=== PATIENT | male | born 1935 | race Caucasian/White ===

== ENCOUNTER 2016-03-22 18:42 | Emergency (ER) | payer OTHER ==
[2016-03-22 18:52] VITALS: BP 167/98
[2016-03-22 20:06] LABS: Urine Bilirubin Negative (NEGATIVE); Urine Blood Negative /ul (NEGATIVE); Urine Ketone Negative (NEGATIVE); Urine Nitrite Negative (NEGATIVE); Urine Protein Negative (NEGATIVE); Urine Urobilinogen Normal (NORMAL)
--- NOTE | 2016-03-22 20:11 | ERNOTE ---
ER Male HPI Date of Service: 03/22/16 Stated Complaint: URINARY PAIN ER Male: dysuria Time Seen by Provider: 03/22/16 20:06 Source: patient Exam Limitations: no limitations Immunizations: IMMUNIZATION HX Immunizations Up to Date Yes History of Influenza Vaccine Yes Hx Pneumococcal Vaccination No Allergies/Adverse Reactions: Allergies No Known Allergies Allergy (Unverified 12/16/14 17:32) Home Medications: HOME MEDICATIONS Doxazosin Mesylate [Cardura] 2 mg PO DAILY 12/16/14 [Last Taken Unknown] Doxycycline Hyclate [Vibratab] 100 mg PO BID #20 tab 12/16/14 [Last Taken Unknown] Finasteride [Proscar] 5 mg PO DAILY #14 tablet 03/22/16 [Last Taken Unknown] - History of Present Illness Narrative: Pt. comes in with c/o dysuria and increase in frequency since yesterday with no fever or recent illness noted. pt. denies any other symptoms, NVD, or prehospital treatment. Pt. states that he has a hx of BPH but this feels different for him. Review of Systems - Review of Systems Constitutional: Present: no symptoms reported. Absent: recent illness, fever, chills, fatigue, malaise EYE: Present: no symptoms reported ENT: Present: no symptoms reported Respiratory: Present: no symptoms reported. Absent: shortness of breath, cough , wheezing Cardiology: Present: no symptoms reported. Absent: chest pain, palpitations, edema Gastrointestinal/Abdominal: Present: no symptoms reported. Absent: nausea, vomiting, diarrhea Genitourinary: Present: frequency, dysuria. Absent: pain, decreased urinary output Musculoskeletal: Present: no symptoms reported. Absent: back pain, joint pain Skin: Present: no symptoms reported. Absent: rash, change in color Neurological: Present: no symptoms reported. Absent: headache, dizziness/light- headedness, numbness, tingling All Other Systems: All systems neg except as marked - Patient's Past Medical History Patient History - Medical: Arthritis Patient History - Cancer: No Hx of Cancer Patient History - Surgical Procedures: Other - Social History Have you smoked in the past 12 months: No Do you dip or chew tobacco: Yes Physical Exam - Physical Exam General Appearance: Present: wd/wn, alert, no apparent distress Eye Exam: Normal inspection: bilateral, PERRL: bilateral, EOMI: bilateral Respiratory: Present: no respiratory distress, normal breath sounds, no accessory muscle use, chest nontender, lungs clear Cardiovascular/Chest: Present: regular rate, rhythm, no murmur, normal peripheral pulses Gastrointestinal/Abdominal: Present: normal bowel sounds, nontender, nondistended, soft, no organomegaly Rectal Exam: Present: other - large boggy prostate Back Exam: Present: normal inspection, normal range of motion, no CVA tenderness , no vertebral tenderness Extremity Exam: Present: normal inspection, non-tender, no edema, normal range of motion Neurological Exam: Present: alert, oriented, normal mood/affect, no motor/ sensory deficits, 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 Absent: pallor, skin rash ED Progress - Date and Time Seen: Date and Time: 03/22/16 20:32 Pt. has not seen a urologist for years for bph will add in flomax and see if that helps pt. and have hoim follow up with Dr Cox office tomorrow for follow up and further evaluation. - Vital Signs Patient's Vital Signs:: I have reviewed the patient's vital signs. Vital Signs: Vital Signs 03/22/16 18:50 Temperature 36.8 C Pulse Rate 62 Respiratory 18 Rate Blood Pressure 167/98 O2 Sat by Pulse 98 Oximetry - Progress/Reassessment Chief Complaint: Genitourinary Problem Departure Clinical Impression: BPH (benign prostatic hyperplasia) Qualifiers: Prostatic enlargement morphology: unspecified morphology Lower urinary tract symptom presence: symptoms present Qualified Code(s): N40.1 - Benign prostatic hyperplasia with lower urinary tract symptoms - Departure Disposition: Home self-care Condition: Good Instructions: Benign Prostatic Hyperplasia Additional Instructions: Please follow up with Dr Linares office by calling office tomorrow for appointment. Referrals: Nick Garcia MD [Primary Care Provider] - Kenny Gustafson MD [Associate] - Prescriptions: Finasteride [Proscar] 5 mg PO DAILY #14 tablet
[2016-03-22 20:14] LABS: Urine Appearance Clear; Urine Color Yellow
[2016-03-22 20:15] LABS: Urine Bacteria None Seen; Urine RBC None Seen /hpf (0-5); Urine WBC None Seen /hpf (0-5)
[2016-03-22] MEDS ORDERED: FINASTERIDE 5 MG TABLET PO SCH (21:15)
== END 2016-03-22 21:10 | disposition home or self-care (01) ==
LOC: ER 18:42
DX: R30.0 Dysuria (principal); N40.1 Benign prostatic hyperplasia with lower urinary tract symptoms; R35.0 Frequency of micturition

== ENCOUNTER 2016-10-27 11:46 | Emergency (ER) | payer MEDICARE ==
[2016-10-27] MEDS ORDERED: NORMAL SALINE 1,000 ML IV ONE (11:50)
[2016-10-27] MEDS ORDERED: fentaNYL CITRATE/PF 50 MCG/ML AMPUL IV ONE ×5 (11:56→12:38)
[2016-10-27] MEDS ORDERED: fentaNYL CITRATE/PF 50 MCG/ML AMPUL ONE (11:56)
[2016-10-27] MEDS ORDERED: ONDANSETRON HCL/PF 2 MG/ML VIAL IV ONE (12:20)
--- NOTE | 2016-10-27 12:23 | ERNOTE ---
Back Pain ER HPI Date of Service: 10/27/16 Presenting Symptoms: other - low right flank pain Time Seen by Provider: 10/27/16 11:59 Source: patient, family Exam Limitations: other - patient in intense pain Immunizations: IMMUNIZATION HX Immunizations Up to Date Yes History of Influenza Vaccine Yes Hx Pneumococcal Vaccination No Allergies/Adverse Reactions: Allergies No Known Allergies Allergy (Unverified 12/16/14 17:32) Home Medications: HOME MEDICATIONS Doxazosin Mesylate [Cardura] 2 mg PO DAILY 12/16/14 [Last Taken Unknown] Doxycycline Hyclate [Vibratab] 100 mg PO BID #20 tab 12/16/14 [Last Taken Unknown] Finasteride [Proscar] 5 mg PO DAILY #14 tablet 03/22/16 [Last Taken Unknown] Narrative: 81 yo WM brought by EMS. Lifted a chair and very shortly after developed intense right lower flank pain. EMS gave 2 mg MS and BP dropped to 90 systolic. On arrival diaphoretic, bradycardic, BP 80/60. Pale but blushing of skin and face. IV fluids initiated and BP carrie to 120/70 but pulse remained 45 sinus sandra. EKG compared to 12/16/14 now has prolonged QT with sinus bradycardia. IV fentanyl improved pain and patient said it was now radiating to midline back. No nausea, chest pain, SOB. Timing: Reports: constant Quality/Severity: Reports: severe Modifying Factors - (Improves): Reports: nothing Modifying Factors - (Worsens): Reports: nothing Associated Symptoms: Reports: sweating Review of Systems - Review of Systems Constitutional: Present: no symptoms reported ENT: Present: no symptoms reported Respiratory: Present: other - says he has been have some chest pain and exertional dyspnea Cardiology: Present: no symptoms reported Gastrointestinal/Abdominal: Present: other - Has been having constipation. Has not had BM for two days Genitourinary: Present: other - BPH Neurological: Present: no symptoms reported - Patient's Past Medical History Patient History - Medical: Arthritis Patient History - Cardiac/Respiratory: Pneumonia Patient History - Cancer: No Hx of Cancer Patient History - Surgical Procedures: Other, ENT - Social History Smoking Status: Former smoker - Immunizations Immunizations Up to Date: Yes Hx Pneumococcal Vaccination: No History of Influenza Vaccine: Yes Physical Exam - Physical Exam General Appearance: Present: wd/wn, alert, severe distress Head Exam: Present: normal inspection Eye Exam: PERRL: bilateral, EOMI: bilateral, Conjunctivae pale: bilateral Ears, Nose, Throat: Present: normal ENT inspection Neck: Present: normal inspection, nontender Respiratory: Present: no respiratory distress, normal breath sounds, chest nontender Cardiovascular/Chest: Present: no murmur, bradycardia Peripheral Pulses: N=norm/S=strong/W=weak/B=bound/A=absent: Radial (R): Normal, Strong, Radial (L): Normal, Strong, Femoral (R): Normal, Strong, Femoral (L): Normal, Strong, Dorsalis-pedis (R): Normal, Dorsalis-pedis (L): Normal Gastrointestinal/Abdominal: Present: nontender, soft Extremity Exam: Present: normal inspection, non-tender Neurological Exam: Present: alert, oriented, normal mood/affect, no motor/ sensory deficits ED Progress - Date and Time Seen: Date and Time: 10/27/16 13:02 Pain free with fentanyl. BP maintaining. Pulse still <60. 10/27/16 13:19 Dr. Toure from ED [place] accepted patient. - Results and Orders Patient's Lab Results:: I have reviewed the patient's lab results. - Vital Signs Patient's Vital Signs:: I have reviewed the patient's vital signs. 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 Huston of Vascular Surgery [facility] accepted patient. Referrals: Nick Garcia MD [Primary Care Provider] -
[2016-10-27 12:30] LABS: Hematocrit 32.9 % (42.0-52.0); Hemoglobin 10.9 gm/dL (13.5-18.0); Mean Cell Volume 87.7 fl (78-100); Mean Corpuscular Hemoglobin 29.1 pg (27-31); Mean Corpuscular Hgb Conc 33.1 g/dl (32-36); Mean Platelet Volume 11.5 fl (6.0-9.5); Platelet Count 131 K/mm3 (150-450); Red Blood Count 3.75 M/mm3 (4.7-6.0); Red Cell Distribution Width 14.6 % (11.5-14.0); White Blood Count 19.2 K/mm3 (4.0-10.5)
[2016-10-27] MEDS ORDERED: ONDANSETRON HCL/PF 2 MG/ML VIAL ONE (12:33)
[2016-10-27 12:36] LABS: Total Cells Counted 100
[2016-10-27 12:42] LABS: Band 4 % (0-2.0); Lymphocyte 5 % (20-51); Monocyte 6 % (0-9); Neutrophil 85 % (42-75); Neutrophil # 16.3 K/mm3 (1.3-6.0); Platelet Estimate Decreased (NORMAL); RBC Morphology Normal (NORMAL)
[2016-10-27 12:43] LABS: Prothrombin Time (Patient) 10.9 Seconds (9.4-11.4)
[2016-10-27 12:50] LABS: Albumin * 3.2 gm/dl (3.4-5.0); Anion Gap 19.2 mmol/L (6.8-13.8); BUN/Creatinine Ratio 15.5 (9.0-21.6); Bilirubin, Total 0.9 mg/dL (0.0-1.1); Ca. Corrected For Albumin 8.4 mg/dL (8.4-10.2); Calcium * 8.1 mg/dL (7.9-10.9); Carbon Dioxide 19.8 mmol/L (24-32.6); Total Protein 6.8 gm/dL (6.2-8.2)
[2016-10-27 12:51] LABS: INR 1.05 INR (0.90-1.10)
[2016-10-27] MEDS ORDERED: LABETALOL HCL 5 MG/ML VIAL IV ONE ×2 (13:01→13:02)
[2016-10-27 16:32] VITALS: BP 99/64
== END 2016-10-27 13:15 | disposition short-term general hospital (02) ==
LOC: ER 11:46
DX: I71.4 Abdominal aortic aneurysm, without rupture (principal); Z87.891 Personal history of nicotine dependence
CPT/HCPCS: 36415; 74176; 80053; 85025; 85610; 85730; 93005; 96374; 96375; 99284; J2405

== ENCOUNTER 2017-01-10 22:39 | Emergency (ER) | payer MEDICARE ==
--- NOTE | 2017-01-10 23:05 | ERNOTE ---
ER Male HPI Stated Complaint: URINARY PROBLEM ER Male: urinary retention Time Seen by Provider: 01/10/17 22:57 Source: patient Exam Limitations: no limitations Immunizations: IMMUNIZATION HX Immunizations Up to Date Yes History of Influenza Vaccine Yes Hx Pneumococcal Vaccination Yes Allergies/Adverse Reactions: Allergies No Known Allergies Allergy (Verified 01/10/17 22:45) Home Medications: HOME MEDICATIONS Aspirin [Lo-Dose Aspirin EC] 81 mg PO DAILY 01/10/17 [Last Taken Unknown] Multivitamin [Multivitamins] 1 each PO DAILY 01/10/17 [Last Taken Unknown] Tamsulosin HCl 0.4 mg PO DAILY 01/10/17 [Last Taken Unknown] - History of Present Illness Narrative: Pt had TURP a week ago. Catheter was removed this morning and he was able to urinate for most of the day. This evening he has not been able to urinate and was getting uncomfortable. Bladder scan showed 600mL and catheter was place and resulted in 550 mL. Symptoms are resolved Timing: Present: getting worse Quality: Present: moderate Onset Location: Present: suprapubic Prior Treatment: Present: recently seen, treated by physician - OP surgery Review of Systems - Review of Systems Constitutional: Absent: recent illness, fever, chills EYE: Present: no symptoms reported ENT: Present: no symptoms reported Respiratory: Present: no symptoms reported Cardiology: Present: no symptoms reported Gastrointestinal/Abdominal: Absent: nausea, vomiting, constipation, abdominal pain Genitourinary: Present: See HPI. Absent: dysuria Musculoskeletal: Absent: back pain Skin: Present: no symptoms reported Neurological: Present: no symptoms reported Endocrine: Present: no symptoms reported Hematologic/Lymphatic: Present: no symptoms reported - Patient's Past Medical History Patient History - Medical: Arthritis, Other Patient History - Cardiac/Respiratory: Pneumonia Patient History - Cancer: No Hx of Cancer Patient History - Surgical Procedures: Other, ENT Patient History - Other: None - Social History Living Situations: home Abuse History: No History of abuse Psych History: No pertinent hx Smoking Status: Never smoker Have you smoked in the past 12 months: No Do you dip or chew tobacco: No Alcohol Use: none Drug Use: none - Immunizations Immunizations Up to Date: Yes Hx Pneumococcal Vaccination: Yes History of Influenza Vaccine: Yes Physical Exam - Physical Exam General Appearance: Present: wd/wn, alert, no apparent distress Head Exam: Present: normal inspection, no evidence of injury Respiratory: Present: no respiratory distress, no accessory muscle use Gastrointestinal/Abdominal: Present: normal bowel sounds, nontender, nondistended, soft Male Genitals Exam: Present: normal genitalia Extremity Exam: Present: normal inspection Neurological Exam: Present: alert, oriented, normal mood/affect Skin Exam: Present: normal color, warm/dry Lymphatic Exam: Present: no adenopathy ED Progress - Results and Orders Patient's Lab Results:: I have reviewed the patient's lab results. Results and Orders: Laboratory Tests 01/10/17 23:00 Urine Color Dark yellow Urine Appearance Slightly cloudy Urine pH 6.0 Ur Specific Elbe 1.015 Urine Protein 15 H Urine Glucose (UA) Negative Urine Ketones Negative Urine Blood 250 H Urine Nitrate Negative Urine Bilirubin Negative Prot Sulfosalicylic Acd 1+ Urine Urobilinogen Normal Ur Leukocyte Esterase Negative Urine RBC 10-25 H Urine WBC 0-5 Ur Epithelial Cells 0-5 Amorphous Sediment Many - 3+ H Urine Bacteria None seen Urine Mucus Few - 1+ H Urine Culture Comments Culture to follow - Vital Signs Patient's Vital Signs:: I have reviewed the patient's vital signs. Vital Signs: Vital Signs 01/10/17 22:42 Temperature 36.4 C L Pulse Rate 98 Respiratory 14 Rate Blood Pressure 150/91 O2 Sat by Pulse 99 Oximetry - Progress/Reassessment Chief Complaint: Genitourinary Problem Departure Clinical Impression: Urinary obstruction - Departure Disposition: Home Follow Up Needed Condition: Good Instructions: Acute Urinary Retention, Male Additional Instructions: Call your urologist and discuss follow up or removal of your catheter. Referrals: Nick Garcia MD [Primary Care Provider] -
[2017-01-10 23:06] LABS: Urine Bilirubin Negative (NEGATIVE); Urine Blood 250 /ul (NEGATIVE); Urine Ketone Negative (NEGATIVE); Urine Nitrite Negative (NEGATIVE); Urine Protein 15 mg/dL (NEGATIVE); Urine Specific Gravity 1.015 SP.GR. (1.005-1.030); Urine Urobilinogen Normal (NORMAL)
[2017-01-10 23:08] LABS: Urine Amorphous Sediment Many - 3+ (NONE-FEW); Urine Appearance Slightly Cloudy; Urine Bacteria None Seen; Urine Color Dark Yellow; Urine Mucus Few - 1+; Urine WBC 0-5 /hpf (0-5)
[2017-01-11 00:57] VITALS: BP 129/71
== END 2017-01-10 23:58 | disposition home or self-care (01) ==
LOC: ER 22:39
PROC: 0T9B70Z Drainage of Bladder with Drainage Device, Via Natural or Artificial Opening (ICD-10-PCS; principal; 2017-01-10)
PROC: BT20ZZZ Computerized Tomography (CT Scan) of Bladder (ICD-10-PCS; 2017-01-10)
DX: N13.9 Obstructive and reflux uropathy, unspecified (principal)